=== PATIENT | male | born 1985 | race Caucasian/White ===

== ENCOUNTER 2025-02-11 09:11 | Day surgery (SDC) | payer OTHER, SELFPAY ==
[2025-01-20 15:07] VITALS: BMI 24.7
--- NOTE | 2025-02-11 06:56 | P.PNAN_ITS ---
Anes - Initial Pre Proc Eval Procedure: Operation Date: 02/11/25 10:30 Proposed Procedures p A-1 Mao Release Left Index Finger - Renny Pond MD Date/Time: 02/11/25 06:56 Surgeon: Renny Pond MD Pre Op Diagnosis: Left Index Trigger Finger Patient Data Age: 40 Gender: M Height: 1.85 m Weight: 85 kg Allergies Allergy/AdvReac Type Severity Reaction Status Date / Time No Known Allergies Allergy Unverified 02/11/25 09:52 Home Medications ?Medication ?Instructions ?Recorded ?Confirmed ?Type acetaminophen 325 mg capsule 325 mg PO ONCE PRN fever or pain 10/05/24 02/11/25 History atorvastatin 10 mg tablet (Lipitor) 10 mg PO HS 10/05/24 02/11/25 History chlorpheniramine maleate 4 mg 4 mg PO Q6H PRN allergy symptoms 10/05/24 02/11/25 History tablet (Allergy (chlorpheniramine)) naproxen 500 mg tablet (Naprosyn) 500 mg PO BID PRN pain 01/20/25 02/11/25 History Patient hx anesthesia problems: none Family hx anesthesia problems: none Results Review: All pre-operative results and documents have been reviewed as part of the pre- operative evaluation. [facility] Past Medical History Medical History (Updated 02/11/25 @ 11:10 by Felix Andrade DO) Hyperlipidemia Social History Social History Smoking status: Never smoker Alcohol intake: former Substance use: former Living arrangements: incarcerated Anes - Eval Final PreProcedure Day of Procedure 02/11/25 06:56 Patient weight: normal Heart: regular rate and rhythm Lungs: clear to auscultation and normal air movement Airway: Mallampati scale class II Neurological: alert and oriented Last oral intake: >/= 8 hours ASA classification: II Emergent: no Anesthetic plan: proceed Anesthesia type and monitoring: general GIVS and standard monitoring Results Review: All pre-operative results and documents have been reviewed as part of the pre- operative evaluation. Informed Consent: The patient's anesthetic plan and its attendant risks and benefits were discussed with the patient/family/POA. Questions were solicited and answers provided to the satisfaction of the patient/family/POA.
--- NOTE | 2025-02-11 06:57 | PM.HPGS ---
History of Present Illness History of Present Illness Chief complaint: Left Index Trigger Finger Narrative: Patient seen and examined in pre-operative holding area. No interval change in medical history or symptoms. Patient recalls previous discussion of benefits and alternatives to procedure. Continues to desire to proceed with left index finger a1 elmer release. Reviewed procedure, post-op expectations and risks including but not limited to bleeding, infection, injury to tendon/nerve/vessel, decreased hand function, stiffness, RSD, no change or worsening of symptoms. I discussed the possible use of assistants and their participation in the case. Patient stated understanding and signed the consent form wishing to proceed. Review of Systems Review of Systems: All systems reviewed & are unremarkable except as noted in HPI and below PMFSH Social History Social History Smoking status: Never smoker Alcohol intake: former Substance use: former Living arrangements: incarcerated Meds Home Medications and Allergies Home Medications ?Medication ?Instructions ?Recorded ?Confirmed ?Type acetaminophen 325 mg capsule 325 mg PO ONCE PRN fever or pain 10/05/24 01/20/25 History atorvastatin 10 mg tablet (Lipitor) 10 mg PO HS 10/05/24 01/20/25 History chlorpheniramine maleate 4 mg 4 mg PO Q6H PRN allergy symptoms 10/05/24 01/20/25 History tablet (Allergy (chlorpheniramine)) naproxen 500 mg tablet (Naprosyn) 500 mg PO BID PRN pain 01/20/25 01/20/25 History Allergies Allergy/AdvReac Type Severity Reaction Status Date / Time No Known Allergies Allergy Unverified 01/20/25 15:15 Exam Narrative: unchanged Assessment and Plan Assessment and plan (1) Trigger finger, left index finger: Code(s): M65.322 - Trigger finger, left index finger Status: Acute Assessment and Plan: cont as above
--- NOTE | 2025-02-11 06:58 | P.OP_ITS ---
Procedure Note - Detailed Date of Procedure 02/11/25 Pre-op Diagnosis Left Index Trigger Finger Post-op Diagnosis Same Procedure Performed left index finger a1 elmer release Surgeon Renny Pond MD [employer] [facility] Anesthesia MAC Description of Procedure INFORMED CONSENT: The patient was seen and examined and marked in the pre-op area.? The patient signed the consent form. PROCEDURE IN DETAIL:The patient taken back to OR on the stretcher in supine position. Time out performed with anesthesia, surgeon and staff agreeing on patient's name site and surgery to be performed SCDs were placed on the lower extremities and inflated. A tourniquet was placed on {eft} upper extremity and antibiotics given IV After anesthesia administered sedation I injected {3}cc 1%lido and 0.5% marcaine plain at the operative site The?{left upper extremity}?was prepped and draped in sterile fashion the??{left upper extremity} was? exsanguinated with Esmarch bandage and tourniquet inflated to 250mmHg I proceeded with making a longitudinal incision over the left index finger A1 elmer through skin and dermis with a 15 blade scalpel. Littler scissors were used to spread through subcutaneous tissue down to the A1 elmer. The A1 elmer was initially incised with a 15 blade scalpel. Littler scissors were used to spread above it and below it proximally and distally and completed the transection entirely. Ragnell retractor was used withdrawal the FDS and FDP tendons for inspection. They were free of masses and synovitis but there was some notable fraying of the fds tendon but they were gliding smoothly in the sheath without triggering or crepitus. I irrigated with normal saline and closed with 4-0 chromic. A dressing of xeroform, 4x4, kian, an betty bandage was applied after the tourniquet was let down noting the hand was warm and well perfused. The patient was then awaken from anesthesia and transferred to the recovery room in stable condition.? Complications - none EBL- 0cc Disposition - home in stable conditions [facility] was essential for positioning, retraction, closure and dressing placement [facility] Billing Surgery - Charge Forward: Surgery Billing ([id number] for meera)
[2025-02-11] MEDS: LACTATED RINGERS 1,000 ML 30 ML IV CONT (09:40)
[2025-02-11 09:53] VITALS: BP 107/58; PULSE 71; RESP 18; TEMP 37.1; O2SAT 98
[2025-02-11] MEDS: ceFAZolin SODIUM 2 GM/20 ML SW SYRINGE IV PUSH (11:13)
[2025-02-11] MEDS: LIDOCAINE 1% LOCAL INJ 20 ML VIAL INFILTRATE (11:25)
[2025-02-11] MEDS: BUPivacaine HCL 0.5% PF 30 ML VIAL INFILTRATE (11:25)
[2025-02-11 11:31] VITALS: BP 108/62; PULSE 71; RESP 16; O2SAT 100
[2025-02-11 12:00] VITALS: BP 118/84; PULSE 72; RESP 20; O2SAT 100
--- NOTE | 2025-02-11 13:12 | WPDANESPN ---
Anes - Prog Note Post-Op Date/Time: 02/11/25 13:12 Cardiovascular status: normal Respiratory status: normal Airway patency: baseline Mental status: baseline Post-Op hydration status: normal Vital Signs: Last Vital Signs Temp 37.1 C 02/11/25 09:53 Pulse 72 02/11/25 12:00 Resp 20 02/11/25 12:00 BP 118/84 02/11/25 12:00 Pulse Ox 100 02/11/25 12:00 O2 Del Method Room Air 02/11/25 12:00 Pain Score (VAS): 0 I/O: Intake & Output 02/10/25 02/11/25 02/11/25 23:59 07:59 15:59 Intake Total 100 Balance 100 Post-procedural complaints: none Patient Feedback: Patient satisfied with anesthetic care. Other Findings: Patient vital signs back to baseline. Patient denies nausea and vomiting. Patient's pain under control. Patient OK for discharge.
== END 2025-02-11 12:10 | disposition home or self-care (01) ==
LOC: ASC 09:12
PROVIDERS: Visit Provider Plastic Surgery
PROC: (CPT 26055; principal; 2025-02-11 10:30)
DX: M65.322 Trigger finger, left index finger (principal)
CPT/HCPCS: 26055